=== PATIENT | male | born 1990 | race Caucasian/White ===

== ENCOUNTER 2018-11-20 12:49 | Inpatient (IN) | payer OTHER ==
[~2018-11-20] VITALS: Ht 172.7 cm; Wt 69.4 kg
[2018-11-20 13:00] VITALS: BP 126/76
[2018-11-20 16:19] VITALS: BP 128/72
[2018-11-20] MEDS ORDERED: DOCUSATE SODIUM 100 MG CAPSULE PO PRN (17:00)
[2018-11-20] MEDS ORDERED: ONDANSETRON HCL 4 MG TABLET PO PRN (17:00)
[2018-11-20] MEDS ORDERED: ACETAMINOPHEN 325 MG TABLET PO PRN (17:00)
[2018-11-20] MEDS ORDERED: ONDANSETRON HCL 4 MG/2 ML VIAL IVP PRN (17:30)
[2018-11-20 21:11] LABS: APPEARANCE,URINE CLEAR (CLEAR); BILIRUBIN,URINE NEGATIVE (NEGATIVE); GLUCOSE, URINE (UA) NEGATIVE (NEGATIVE); KETONES,URINE NEGATIVE (NEGATIVE); LEUKOCYTE ESTERASE ,URINE NEGATIVE (NEGATIVE); NITRATE,URINE NEGATIVE (NEGATIVE); OCCULT BLOOD,URINE NEGATIVE (NEGATIVE); PH,URINE 5.5 (5.0-8.0); PROTEIN,URINE NEGATIVE (NEGATIVE)
[2018-11-20 21:37] LABS: RBC,URINE None Seen /HPF (0-2); WBC,URINE 0-2 /HPF (0-5)
[2018-11-20 21:38] LABS: BACTERIA,URINE None Seen /HPF (None Seen); SQUAMOUS EPITHELIAL CELL,UR Rare /LPF (None Seen)
[2018-11-20] MEDS: MELATONIN 3 MG TABLET PO PRN (21:41)
[2018-11-20 23:30] VITALS: BP 116/65
[2018-11-21 07:12] LABS: ALANINE AMINOTRANSFERASE 287 U/L (12-78); ALBUMIN 3.5 g/dL (3.4-5.0); ALKALINE PHOSPHATASE 30 U/L (46-116); ANION GAP 5 mmol/L (8-16); ASPARTATE AMINOTRANSFERASE 93 U/L (15-37); BILIRUBIN,TOTAL 0.4 mg/dL (0.1-1.0); CALCIUM, TOTAL 8.6 mg/dL (8.8-10.5); CARBON DIOXIDE 29 mmol/L (22-29); CHLORIDE 105 mmol/L (98-107); CREATININE 0.82 mg/dL (0.60-1.30); GLOMERULAR FILTR. RATE CALC > 60 mL/min (>60); GLUCOSE,RANDOM 116 mg/dL (70-110); LACTATE DEHYDROGENASE 126 U/L (85-227); POTASSIUM 3.6 mmol/L (3.5-5.1); SODIUM SERUM 139 mmol/L (136-145); TOTAL PROTEIN, SERUM 5.2 g/dL (6.4-8.2); UREA NITROGEN, BLOOD 17 mg/dL (7-18)
[2018-11-21 07:30] VITALS: BP 108/59
[2018-11-21] MEDS: DOCUSATE SODIUM 100 MG CAPSULE PO SCH (08:30)
[2018-11-21] MEDS: MULTIVITAMINS WITH MINERALS, THERAPEUTIC TABLET PO SCH (08:30)
[2018-11-21 09:15] LABS: BASOPHILS % (AUTO) 0.4 % (0.0-2.0); HEMATOCRIT 38.7 % (41-53); HEMOGLOBIN 13.6 g/dL (13.5-17.5); LYMPHOCYTES # (AUTO) 2.5 K/uL (1.0-4.8); LYMPHOCYTES % (AUTO) 43.5 % (22.0-44.0); MEAN CORPUSCULAR HEMOGLOBIN 31.9 pg (26.0-34.0); MEAN CORPUSCULAR HGB CONC 35.3 G/dL (31.0-37.0); MEAN CORPUSCULAR VOLUME 90 fL (80-100); MONOCYTES # (AUTO) 0.7 K/uL (0.1-1.0); MONOCYTES % (AUTO) 11.5 % (2.0-9.0); NEUTROPHILS # (AUTO) 2.4 K/uL (1.8-7.7); NEUTROPHILS % (AUTO) 42.6 % (40.0-70.0); PLATELET COUNT (AUTO) 208 K/uL (150-450); RED BLOOD CELL COUNT(AUTO) 4.28 MIL/uL (4.50-5.90); RED CELL DISTRIBUTION WIDTH 13.6 % (11.5-14.5)
[2018-11-21] MEDS: WATER IV ONE (10:00)
[2018-11-21] MEDS: DEXTROSE 5% IV ONE (10:00)
[2018-11-21] MEDS: CALCIUM GLUCONATE IV ONE (10:00)
[2018-11-21] MEDS ORDERED: SODIUM CHLORIDE 0.9% IV ONE (14:30)
[2018-11-21] MEDS ORDERED: CITRATE DEXTROSE IV ONE (14:30)
[2018-11-21] MEDS ORDERED: CALCIUM GLUCONATE IV ONE (14:30)
[2018-11-21] MEDS ORDERED: ALBUMIN HUMAN IV ONE (14:30)
[2018-11-21 15:34] LABS: EOSINOPHILS % (AUTO) 2.3 % (1.0-6.0); HEMATOCRIT 34.8 % (41-53); HEMOGLOBIN 12.3 g/dL (13.5-17.5); LYMPHOCYTES # (AUTO) 2.3 K/uL (1.0-4.8); LYMPHOCYTES % (AUTO) 39.8 % (22.0-44.0); MEAN CORPUSCULAR HEMOGLOBIN 32.2 pg (26.0-34.0); MEAN CORPUSCULAR HGB CONC 35.4 G/dL (31.0-37.0); MEAN CORPUSCULAR VOLUME 91 fL (80-100); MONOCYTES # (AUTO) 0.7 K/uL (0.1-1.0); MONOCYTES % (AUTO) 11.2 % (2.0-9.0); NEUTROPHILS # (AUTO) 2.7 K/uL (1.8-7.7); NEUTROPHILS % (AUTO) 45.7 % (40.0-70.0); PLATELET COUNT (AUTO) 195 K/uL (150-450); RED BLOOD CELL COUNT(AUTO) 3.82 MIL/uL (4.50-5.90); RED CELL DISTRIBUTION WIDTH 13.2 % (11.5-14.5)
[2018-11-21 15:44] LABS: ANION GAP 9 mmol/L (8-16); CALCIUM, TOTAL 8.7 mg/dL (8.8-10.5); CARBON DIOXIDE 28 mmol/L (22-29); CHLORIDE 102 mmol/L (98-107); CREATININE 0.79 mg/dL (0.60-1.30); GLOMERULAR FILTR. RATE CALC > 60 mL/min (>60); GLUCOSE,RANDOM 87 mg/dL (70-110); POTASSIUM 3.6 mmol/L (3.5-5.1); SODIUM SERUM 139 mmol/L (136-145); UREA NITROGEN, BLOOD 22 mg/dL (7-18)
[2018-11-21 16:09] LABS: LACTATE DEHYDROGENASE 157 U/L (85-227)
[2018-11-21 17:20] VITALS: BP 115/73
[2018-11-21] MEDS ORDERED: HEPARIN SODIUM,PORCINE 5,000 UNITS/ML VIAL SQ ONE (17:59)
[2018-11-21] MEDS: SENNA 187 MG TABLET PO SCH ×2 (19:57→20:00)
[2018-11-21] MEDS: CHLORHEXIDINE GLUCONATE 4% 118 ML TOPICAL LIQUID TP SCH (19:58)
[2018-11-21] MEDS: MELATONIN 3 MG TABLET PO PRN (22:03)
[2018-11-21 23:15] VITALS: BP 128/64
[2018-11-22 07:27] VITALS: BP 112/72
[2018-11-22] MEDS: DOCUSATE SODIUM 100 MG CAPSULE PO SCH (08:15)
[2018-11-22] MEDS: MULTIVITAMINS WITH MINERALS, THERAPEUTIC TABLET PO SCH (08:15)
[2018-11-22] MEDS ORDERED: POTASSIUM CHLORIDE 20 MEQ ER TABLET PO ONE (12:30)
[2018-11-22 16:50] VITALS: BP 103/66
[2018-11-22] MEDS ORDERED: SENNA 187 MG TABLET PO PRN (19:00)
[2018-11-22] MEDS: MELATONIN 3 MG TABLET PO PRN (21:32)
[2018-11-22] MEDS: CHLORHEXIDINE GLUCONATE 4% 118 ML TOPICAL LIQUID TP SCH (21:32)
[2018-11-23] MEDS ORDERED: MULT-1239 PO (02:24)
[2018-11-23] MEDS ORDERED: DSS100 PO (02:25)
[2018-11-23 06:07] VITALS: BP 107/65
[2018-11-23 07:20] VITALS: BP 102/68
[2018-11-23] MEDS: MULTIVITAMINS WITH MINERALS, THERAPEUTIC TABLET PO SCH (08:29)
[2018-11-23] MEDS: DOCUSATE SODIUM 100 MG CAPSULE PO SCH (08:29)
[2018-11-23] MEDS ORDERED: LIDOCAINE 1%/EPI 1:200,000/PF 10 ML VIAL ONE (10:08)
[2018-11-23] MEDS ORDERED: SODIUM CHLORIDE 0.9% 2,000 ML IV ONE (11:49)
[2018-11-23 13:30] LABS: BASOPHILS % (AUTO) 0.7 % (0.0-2.0); EOSINOPHILS % (AUTO) 3.1 % (1.0-6.0); HEMATOCRIT 34.4 % (41-53); HEMOGLOBIN 12.1 g/dL (13.5-17.5); LYMPHOCYTES % (AUTO) 39.3 % (22.0-44.0); MEAN CORPUSCULAR HEMOGLOBIN 32.5 pg (26.0-34.0); MEAN CORPUSCULAR HGB CONC 35.2 G/dL (31.0-37.0); MEAN CORPUSCULAR VOLUME 92 fL (80-100); MONOCYTES # (AUTO) 0.5 K/uL (0.1-1.0); MONOCYTES % (AUTO) 10.4 % (2.0-9.0); NEUTROPHILS # (AUTO) 2.4 K/uL (1.8-7.7); NEUTROPHILS % (AUTO) 46.5 % (40.0-70.0); PLATELET COUNT (AUTO) 247 K/uL (150-450); RED BLOOD CELL COUNT(AUTO) 3.73 MIL/uL (4.50-5.90); RED CELL DISTRIBUTION WIDTH 13.7 % (11.5-14.5)
[2018-11-23 13:45] LABS: ANION GAP 7 mmol/L (8-16); CALCIUM, TOTAL 8.2 mg/dL (8.8-10.5); CARBON DIOXIDE 28 mmol/L (22-29); CHLORIDE 105 mmol/L (98-107); CREATININE 0.97 mg/dL (0.60-1.30); GLOMERULAR FILTR. RATE CALC > 60 mL/min (>60); GLUCOSE,RANDOM 120 mg/dL (70-110); LACTATE DEHYDROGENASE 177 U/L (85-227); POTASSIUM 3.5 mmol/L (3.5-5.1); SODIUM SERUM 140 mmol/L (136-145); UREA NITROGEN, BLOOD 20 mg/dL (7-18)
[2018-11-23] MEDS ORDERED: WATER IV ONE (14:00)
[2018-11-23] MEDS ORDERED: DEXTROSE 5% IV ONE (14:00)
[2018-11-23] MEDS ORDERED: CITRATE DEXTROSE IV ONE (14:00)
[2018-11-23] MEDS ORDERED: SODIUM CHLORIDE 0.9% IV ONE (14:00)
[2018-11-23] MEDS ORDERED: ALBUMIN HUMAN IV ONE (14:00)
[2018-11-23] MEDS ORDERED: CALCIUM GLUCONATE IV ONE ×2 (14:00)
[2018-11-23] MEDS ORDERED: POTASSIUM CHLORIDE 20 MEQ ER TABLET PO ONE (15:45)
[2018-11-23 16:26] LABS: BASOPHILS % (AUTO) 0.5 % (0.0-2.0); EOSINOPHILS % (AUTO) 3.1 % (1.0-6.0); HEMATOCRIT 36.9 % (41-53); HEMOGLOBIN 12.9 g/dL (13.5-17.5); LYMPHOCYTES # (AUTO) 2.3 K/uL (1.0-4.8); MEAN CORPUSCULAR HEMOGLOBIN 32.3 pg (26.0-34.0); MEAN CORPUSCULAR HGB CONC 34.9 G/dL (31.0-37.0); MEAN CORPUSCULAR VOLUME 93 fL (80-100); MONOCYTES # (AUTO) 0.6 K/uL (0.1-1.0); MONOCYTES % (AUTO) 9.9 % (2.0-9.0); NEUTROPHILS # (AUTO) 2.5 K/uL (1.8-7.7); NEUTROPHILS % (AUTO) 45.5 % (40.0-70.0); PLATELET COUNT (AUTO) 195 K/uL (150-450); RED BLOOD CELL COUNT(AUTO) 3.99 MIL/uL (4.50-5.90); RED CELL DISTRIBUTION WIDTH 14.3 % (11.5-14.5)
[2018-11-23 16:41] LABS: ANION GAP 6 mmol/L (8-16); CALCIUM, TOTAL 8.4 mg/dL (8.8-10.5); CARBON DIOXIDE 24 mmol/L (22-29); CHLORIDE 109 mmol/L (98-107); CREATININE 0.76 mg/dL (0.60-1.30); GLOMERULAR FILTR. RATE CALC > 60 mL/min (>60); GLUCOSE,RANDOM 74 mg/dL (70-110); POTASSIUM 3.4 mmol/L (3.5-5.1); SODIUM SERUM 139 mmol/L (136-145); UREA NITROGEN, BLOOD 18 mg/dL (7-18)
[2018-11-23 16:56] LABS: LACTATE DEHYDROGENASE 92 U/L (85-227)
[2018-11-23 22:50] VITALS: BP 112/77
[2018-11-23 23:34] VITALS: BP 118/60
[2018-11-24 07:27] LABS: ANION GAP 5 mmol/L (8-16); CALCIUM, TOTAL 8.2 mg/dL (8.8-10.5); CARBON DIOXIDE 30 mmol/L (22-29); CHLORIDE 106 mmol/L (98-107); CREATININE 1.05 mg/dL (0.60-1.30); GLOMERULAR FILTR. RATE CALC > 60 mL/min (>60); GLUCOSE,RANDOM 92 mg/dL (70-110); POTASSIUM 3.5 mmol/L (3.5-5.1); SODIUM SERUM 141 mmol/L (136-145); UREA NITROGEN, BLOOD 17 mg/dL (7-18)
[2018-11-24 08:10] VITALS: BP 112/70
[2018-11-24] MEDS: MULTIVITAMINS WITH MINERALS, THERAPEUTIC TABLET PO SCH (08:27)
[2018-11-24] MEDS: DOCUSATE SODIUM 100 MG CAPSULE PO SCH (08:28)
[2018-11-24] MEDS ORDERED: POTASSIUM CHLORIDE 20 MEQ ER TABLET PO ONE (12:30)
[2018-11-24 15:30] VITALS: BP 98/63
[2018-11-24] MEDS: MELATONIN 3 MG TABLET PO PRN (21:47)
[2018-11-24 23:05] VITALS: BP 110/64
[2018-11-25 07:30] VITALS: BP 121/72
[2018-11-25] MEDS: DOCUSATE SODIUM 100 MG CAPSULE PO SCH (07:34)
[2018-11-25] MEDS: MULTIVITAMINS WITH MINERALS, THERAPEUTIC TABLET PO SCH (07:34)
== END 2018-11-25 07:45 | disposition home or self-care (01) | DRG 52 ==
LOC: 2WR 13:00
PROC: 6A551Z3 Pheresis of Plasma, Multiple (ICD-10-PCS; principal; 2018-11-21)
PROC: 0JPT3XZ Removal of Tunneled Vascular Access Device from Trunk Subcutaneous Tissue and Fascia, Percutaneous Approach (ICD-10-PCS; 2018-11-23)
PROC: 05PY33Z Removal of Infusion Device from Upper Vein, Percutaneous Approach (ICD-10-PCS; 2018-11-23)
DX: G82.20 Paraplegia, unspecified (principal); G61.0 Guillain-Barre syndrome; R13.10 Dysphagia, unspecified; K59.00 Constipation, unspecified; E87.6 Hypokalemia; Z79.899 Other long term (current) drug therapy
CPT/HCPCS: 36590; 83615; 83735; 85384; 86900; 87081; 92507; 92610; 97110; 97112; 97116; 97140; 97162; 97165; 97530; 97535; 99366; J0610; J1644; J3490; J7030; J7050; J7060; P9041